=== PATIENT | male | born 1950 | race Caucasian/White ===

== ENCOUNTER 2018-01-11 12:24 | Emergency (ER) | payer MEDICARE, OTHER ==
[~2018-01-11] VITALS: Ht 167.6 cm; Wt 96.8 kg
[2018-01-11 12:36] VITALS: BP 114/55; PULSE 63; RESP 16; TEMP 97.6; O2SAT 94
--- NOTE | 2018-01-11 12:56 | PD ---
HPI Chief Complaint: Cold / Flu Symptoms Time Seen by Provider: 12:41 Travel History International Travel<30 days: No Contact w/Intl Traveler<30days: No Traveled to known affect area: No History of Present Illness HPI 67-year-old male presents emergency department for evaluation of cough, sore throat and runny nose that is been present for approximately 4 days. Says that he has had some yellow and brown phlegm with his cough has had trouble sleeping because of the cough. Says he has had some wheezing as well whenever he sleeps and is tried Benadryl without significant improvement. Patient has not tried any other [id number] medications for his cough and congestion. Patient denies any shortness of breath or chest pain. Denies fever/chills. Says he is here today because in September he was diagnosed with flu and had a subsequent HI which required a LifeVest for approximately 2 months. Patient says the LifeVest was removed approximately 2 weeks ago. Patient is from [place] and follows with a primary care physician regularly. He has a history of congestive heart failure, HTN, HLD, COPD. Patient was a lifelong smoker up until he has sensation in September. Says he was prescribed an inhaler in September but does not often use this. In addition he does not have this medication here in [place]. PFSH Past Medical History Hx Anticoagulant Therapy: Yes (asa 81mg) Cardiovascular Problems: Yes (htn on meds, HI) Social History Tobacco Use: No (lifelong smoker, quit in Sep 2017) Allergies-Medications (Allergen,Severity, Reaction): Coded Allergies: No Known Allergies (Unverified , 01/11/18) Reported Meds & Prescriptions Reported Meds & Active Scripts Active Levofloxacin 750 Mg Tablet 750 Mg PO DAILY 5 Days Medrol Dosepak (Methylprednisolone) 4 Mg Dspk 4 Mg PO DIRECTED Per Pharmacist direction Ventolin Hfa 18 GM Inh (Albuterol Sulfate) 90 Mcg/Act Aer 2 Puff INH Q4-6H PRN Reported Ventolin Hfa 18 GM Inh (Albuterol Sulfate) 90 Mcg/Act Aer 2 Puff INH Q4-6H PRN Nicotine Jerardo (Nicotine Polacrilex) 4 Mg Jerardo 4 Mg BUCCAL Q4H Aspirin Low Dose (Aspirin) 81 Mg Chew 81 Mg CHEW DAILY Coreg (Carvedilol) 12.5 Mg Tab 12.5 Mg PO BID Atorvastatin (Atorvastatin Calcium) 40 Mg Tab 40 Mg PO HS Losartan (Losartan Potassium) 50 Mg Tab 50 Mg PO DAILY Aldactone (Spironolactone) 25 Mg Tab 25 Mg PO DAILY Review of Systems Except as stated in HPI: all other systems reviewed are Neg Physical Exam Narrative GENERAL: Well-nourished, well-developed patient. SKIN: Focused skin assessment warm/dry. HEAD: Normocephalic. EYES: No scleral icterus. No injection or drainage. NECK: Supple, trachea midline. No JVD or lymphadenopathy. Mild pharyngeal injection. Bilateral dependent membranes mildly injected without air fluid level. CARDIOVASCULAR: Regular rate and rhythm without murmurs, gallops, or rubs. PMI located near 6th an rib. RESPIRATORY: Breath sounds equal bilaterally, although quiet, diminished bilaterally. No accessory muscle use. GASTROINTESTINAL: Abdomen soft, non-tender, nondistended. MUSCULOSKELETAL: No cyanosis, or edema. BACK: Nontender without obvious deformity. No CVA tenderness. Data Data Last Documented VS Vital Signs Date Time Temp Pulse Resp B/P (MAP) Pulse Ox O2 Delivery O2 Flow Rate FiO2 01/11/18 12:36 97.6 63 16 114/55 (74) 94 Orders Orders Albuterol Neb (Albuterol Neb) (01/11/18 13:00) Ed Discharge Order (01/11/18 13:37) [facility] Medical Decision Making Medical Screen Exam Complete: Yes Emergency Medical Condition: Yes Differential Diagnosis Upper respiratory infection, bronchitis, postnasal drip, allergic rhinitis Narrative Course 67-year-old male presents emergency department for evaluation of cough, congestion and wheezing has been present for approximately 4 days. states that he has not been able to sleep because of the cough. He denies any pedal edema, chest pain. Says he has some shortness breath however, he has a history of COPD and has not been using his inhalers. Vital signs are stable. Initial evaluation of lung sounds are rather quiet however, after the albuterol nebulizer his lung sounds were more audible. No significant wheezing or rhonchi. No pedal edema, Homans sign negative bilaterally Because of patient's history and physical, will prescribe patient albuterol, prednisone, and levofloxacin. I do not believe that patient has a bacterial infectious process going on however, because he is from out of town do not want patient to worsen without the option of taking antibiotics. Patient should use [id number] medications to reduce the runny nose and nasal congestion. Prednisone will also assist with this and the cough. Patient advised to use albuterol inhaler. Patient does have COPD and this will help with the symptoms. He is advised to follow-up with his primary care physician upon return home. Return to the emergency department for worsening or persistent symptoms. Diagnosis Primary Impression: Allergic rhinitis Qualified Codes: J30.9 - Allergic rhinitis, unspecified Additional Impression: Bronchitis Referrals: Primary Care Physician Additional Instructions: You may use a drop of honey and lemon in a cup of warm water to soothe your cough. (If greater than 1 year old) Ensure good hydration and a nutritious diet. Note that viral infections may last for several weeks, along with your cough. Follow up with your primary physician within 2-3 days. Return to the ED for worsening or persistent symptoms. You may try over the counter medications such as Zyrtec, Claritin or Monica for your congestion and runny nose. Generic is okay. Consider nasal saline rinse to reduce congestion as well. Take levoquin ONLY IF you worsen or have a more productive cough, or worsen. You may use the inhaler as prescribed. Start the prednisone today to reduce your symptoms. Scripts Levofloxacin (Levofloxacin) 750 Mg Tablet 750 MG PO DAILY for Infection for 5 Days, #5 TAB 0 Refills Prov: Carlos A Wade MD 01/11/18 Methylprednisolone Dosepak (Medrol Dosepak) 4 Mg Dspk 4 MG PO DIRECTED, #1 DSPK 0 Refills Per Pharmacist direction Prov: Carlos A Wade MD 01/11/18 Albuterol 18 GM Inh (Ventolin Hfa 18 GM Inh) 90 Mcg/Act Aer 2 PUFF INH Q4-6H Y for SHORTNESS OF BREATH, #1 INHALER 0 Refills Prov: Carlos A Wade MD 01/11/18 Disposition: 01 DISCHARGE HOME Condition: Stable Carmen Zurita Jan 11, 2018 12:56
[2018-01-11] MEDS ORDERED: RESP: ALBUTEROL 2.5 MG/3 ML NEB (SCH) INH ONE (13:00)
[2018-01-11] MEDS ORDERED: ASPI81CH6 CHEW (13:02)
[2018-01-11] MEDS ORDERED: SPIR25 PO (13:02)
[2018-01-11] MEDS ORDERED: NICO4LOZ30 BUCCAL (13:02)
[2018-01-11] MEDS ORDERED: CARV12.5 PO (13:02)
[2018-01-11] MEDS ORDERED: LOSA50TA PO (13:02)
[2018-01-11] MEDS ORDERED: VENTAER INH ×2 (13:02→13:18)
[2018-01-11] MEDS ORDERED: ATOR40TA16 PO (13:02)
[2018-01-11] MEDS ORDERED: MEDR4PAK PO (13:34)
[2018-01-11] MEDS ORDERED: LEVO750T3 PO (13:34)
== END 2018-01-11 13:55 | disposition home or self-care (01) ==
LOC: PHEFT 12:24
DX: J30.9 Allergic rhinitis, unspecified (principal); J40 Bronchitis, not specified as acute or chronic; J44.9 Chronic obstructive pulmonary disease, unspecified; E78.5 Hyperlipidemia, unspecified; I11.0 Hypertensive heart disease with heart failure; I25.2 Old myocardial infarction; Z87.891 Personal history of nicotine dependence; Z79.82 Long term (current) use of aspirin
CPT/HCPCS: 94664; 99283; J7613